=== PATIENT | female | born 1965 | race Caucasian/White ===

== ENCOUNTER 2025-04-06 09:20 | Observation (INO) ==
[2025-04-06] MEDS: SOLU-Medrol 125 MG VIAL IVP ONE (09:57)
[2025-04-06] MEDS: DUONEB 0.5 MG/3 MG (3 mL) NEB ONE ×2 (09:57→16:35)
[2025-04-06 10:11] LABS: BASOPHILS % (AUTO) 0.8 % (0.2-1.0); EOSINOPHILS % (AUTO) 0.3 % (0.9-2.9); HEMATOCRIT 47.9 % (36.0-47.0); HEMOGLOBIN 16.4 g/dL (12.0-16.0); LYMPHOCYTES # (AUTO) 1.3 X10^3/uL (1.3-2.9); LYMPHOCYTES % (AUTO) 23.3 % (21.0-51.0); MEAN CORPUSCULAR HEMOGLOBIN 31.2 pg (27.0-34.0); MEAN CORPUSCULAR HGB CONC 34.1 g/dL (33.0-35.0); MEAN CORPUSCULAR VOLUME 91.4 fL (80.0-100.0); MEAN PLATELET VOLUME 9.1 fL (7.4-11.0); MONOCYTES # (AUTO) 0.7 x10^3/uL (0.3-0.8); MONOCYTES % (AUTO) 12.6 % (0.0-13.0); NEUTROPHILS # (AUTO) 3.6 x10^3/uL (2.2-4.8); PLATELET COUNT 181 X10^3/uL (150.0-450.0); RED BLOOD COUNT 5.25 X10^6/uL (3.5-5.4); RED CELL DISTRIBUTION WIDTH 13.4 % (11.6-16.5); WHITE BLOOD COUNT 5.7 X10^3/uL (3.6-10.0)
[2025-04-06 10:19] LABS: ALANINE AMINOTRANSFERASE 24 Units/L (12-78); ALBUMIN 4.1 g/dL (3.4-5.0); ALKALINE PHOSPHATASE 87 Units/L (46-116); ASPARTATE AMINO TRANSFERASE 22 Units/L (15-37); BLOOD UREA NITROGEN 8 mg/dL (7-18); CALCIUM 8.6 mg/dL (8.5-10.1); CARBON DIOXIDE 26.3 mmol/L (21-32); CHLORIDE 102 mmol/L (98-107); CREATININE 0.67 mg/dL (0.55-1.02); GLUCOSE 86 mg/dL (65-99); POTASSIUM 3.4 mmol/L (3.5-5.1); SODIUM 139 mmol/L (136-145); TOTAL PROTEIN 9.6 g/dL (6.4-8.2); eGFR NON BLACK RACES > 60 (>60)
--- NOTE | 2025-04-06 10:20 | DR.SOBA ---
HPI Time Seen Time Seen by Provider: 04/06/25 10:17 Primary Care Physician Primary Care Physician: Neena Daniel [facility] Complaints Chief Complaint Doctors Comments: Patient stated that she has been sick since Wednesday of having shortness of breath she did give her some some albuterol treatments nebulizers twice a day and she did the HFA also. She did not improve so she stopped her primary care provider at the [facility] today and I am and they did a COVID test since she had been exposed to COVID and she stated that the test was negative there. She stated that employees where she worked had COVID and the flu. Chief Complaint:: Patient presented to Neena Daniel [employer] today due to being sick since Wednesday. She states that she has been around sick people at work, and believes that she has caught something there. She states that she started having shortness of breath, cough, and chills Wednesday night. She admits to having albuteral at home already, and started using it during the periods that she felt short of breath. She states that last night the shortness of breath was worse for a short period, so she presented to Neena this morning for further evaluation. Nenea asked her to present to the ER to rule out more serious conditions. COVID-19 Coronavirus risk:travel/contact w/high risk person: Yes Has patient experienced Coronavirus symptoms: Yes Coronavirus symptoms experienced: Coughing and Shortness of Breath Source History Provided: Patient Mode of Arrival Mode of Arrival: Wheelchair Timing Onset of Chief Complaint: 04/03/25 PMH PMH Past Medical History: Yes Past Medical History: GERD Past Surgical History: No Family History History of Family Medical Conditions: Yes Family Medical History: Diabetes Mellitus, Coronary Artery Disease, Sudden Cardiac and Hypertension Social History Does patient currently use any type of tobacco product: No Have you used tobacco products in the last 12 months: No Type of Tobacco Use: None Does any household member use tobacco: No Alcohol Use: None Do you use any recreational Drugs:: No Lives With: Family Lives Where: Home Travel Risk Coronavirus risk:travel/contact w/high risk person: Yes Has patient experienced Coronavirus symptoms: Yes Coronavirus symptoms experienced: Coughing and Shortness of Breath Infectious screening In the last 2 months have you had wt loss of >10#?: NO Have you had fever, night sweats or hemotysis?: No Have you traveled outside the country in the last 6 months?: No Isolation: Droplet ROS Review of Systems Constitutional: Other (Anxious with shortness of breath) Eyes: No Symptoms Reported ENTM: No Symptoms Reported Respiratoy: Non-Productive Cough and Short of Breath Cardiovascular: No Symptoms Reported Gastrointestinal/Abdominal: No Symptoms Reported Genitourinary: No Symptoms Reported Neurological: No Symptoms Reported Musculoskeletal: No Symptoms Reported Integumentary: No Symptoms Reported Hematologic/Lymphatic: No Symptoms Reported Endocrine: No Symptoms Reported Psychiatric: Anxiety PE Vital Signs Vitals: Vital Signs Temperature 98.1 F Pulse Rate 93 Pulse Rate 98 Pulse Rate 98 Pulse Rate 102 Pulse Rate 97 Pulse Rate 96 Pulse Rate 97 Pulse Rate 98 Pulse Rate 96 Pulse Rate 98 Pulse Rate 97 Pulse Rate 109 Pulse Rate 99 Pulse Rate 101 Pulse Rate 90 Pulse Rate 97 Pulse Rate 97 Pulse Rate 99 Respiratory Rate 20 Respiratory Rate 24 Respiratory Rate 29 Respiratory Rate 30 Respiratory Rate 20 Respiratory Rate 23 Respiratory Rate 17 Respiratory Rate 26 Respiratory Rate 24 Respiratory Rate 20 Respiratory Rate 14 Respiratory Rate 19 Respiratory Rate 21 Respiratory Rate 22 Respiratory Rate 17 Respiratory Rate 16 Respiratory Rate 25 Respiratory Rate 18 Blood Pressure 119/80 Blood Pressure 119/79 Blood Pressure 136/90 Blood Pressure 117/75 O2 Sat by Pulse Oximetry 94 O2 Sat by Pulse Oximetry 94 O2 Sat by Pulse Oximetry 96 O2 Sat by Pulse Oximetry 96 O2 Sat by Pulse Oximetry 94 O2 Sat by Pulse Oximetry 94 O2 Sat by Pulse Oximetry 90 O2 Sat by Pulse Oximetry 90 O2 Sat by Pulse Oximetry 92 O2 Sat by Pulse Oximetry 90 O2 Sat by Pulse Oximetry 97 O2 Sat by Pulse Oximetry 92 O2 Sat by Pulse Oximetry 95 O2 Sat by Pulse Oximetry 94 O2 Sat by Pulse Oximetry 91 O2 Sat by Pulse Oximetry 90 O2 Sat by Pulse Oximetry 91 O2 Sat by Pulse Oximetry 100 General Limitations: No Limitations General Appearance: Anxious Head Head Exam: Normal Inspection, Atraumatic and Normocephalic Eyes Eye exam: Normal Appearance, PERRL and EOMI ENT ENT Exam: Normal Exam, Normal Oropharynx and Normal External Ear Exam Neck Neck Exam: Normal Inspection, Full ROM and Trachea Midline Chest Chest Inspection: Normal Inspection Respiratory Respiratory Exam: Prolonged Expiratory Phase Respiratory Exam: Bilateral: Rhonchi Abdominal Exam Abdominal Exam: Normal Inspection and Normal Bowel Sounds Extremities Extremities Exam: Normal Inspection and Full ROM Back Back Exam: Normal Inspection and Full ROM Neurologic Neurological Exam: Alert, Oriented X3 and CN II-XII Intact Psychiatric Psychiatric Exam: Anxious Skin Skin Exam: Warm, Dry and Intact MDM Differential Diagnosis Differential Diagnosis: Anxiety, Pneumonia and Other (urti,viral urti) COURSE Treatment Treatment: Patient was toxic during the early terms of this hospital evaluation. She was initially given ABG and oxygen concentration was 54 pCO2 was 30 O2 sat was 91% on his blood gas. We did a chest x-ray did show low lung volumes with perihilar opacities, we did a CT a of the chest that showed an upper lobe and bilateral lower lobe pneumonias with patchy infiltrates. She also has some pulmonary lymphadenopathy that they suggest to be further evaluated when she clears the pneumonia. The patient had a slightly low potassium at 3.4 the rest of the metabolic panel was normal and on the CBC her white blood cell count was only 5.7. We did do a D-dimer that was 0.27 and the COVID respiratory panel was negative. Since the patient was hypoxic we did contact the physician Dr. Magana for this patient and he stated the patient could be admitted we had already given the patient Zithromax 500 mg IV and had done blood cultures here but he wanted her to be started on levofloxacin 750 mg IV daily tomorrow he wanted to do Solu-Medrol 40 mg IV daily continue oxygen to maintain O2 sat greater than 92 and to the DuoNebs every 6 hours and he also so wanted an AIT swab done. The patient was told of the intent to admit and initially she said that she would like if we could send her home and get these IV antibiotics. She was told that this was virtually impossible but she did need to get treatment so she did states she would except admission to observation for treatment of her pneumonia and to further evaluate at some near date for the pulmonary lymphadenopathy. ROR Labs Reviewed Laboratory Results Reviewed?: Yes 04/06/25 09:56 04/06/25 09:56 Laboratory: WBC 5.7 X10^3/uL (3.6-10.0) 04/06/25 09:56 RBC 5.25 X10^6/uL (3.5-5.4) 04/06/25 09:56 Hgb 16.4 g/dL (12.0-16.0) H 04/06/25 09:56 Hct 47.9 % (36.0-47.0) H 04/06/25 09:56 MCV 91.4 fL (80.0-100.0) 04/06/25 09:56 MCH 31.2 pg (27.0-34.0) 04/06/25 09:56 MCHC 34.1 g/dL (33.0-35.0) 04/06/25 09:56 RDW 13.4 % (11.6-16.5) 04/06/25 09:56 Plt Count 181 X10^3/uL (150.0-450.0) 04/06/25 09:56 MPV 9.1 fL (7.4-11.0) 04/06/25 09:56 Neut % (Auto) 63.0 % (42.0-75.0) 04/06/25 09:56 Lymph % (Auto) 23.3 % (21.0-51.0) 04/06/25 09:56 Shelby % (Auto) 12.6 % (0.0-13.0) 04/06/25 09:56 Eos % (Auto) 0.3 % (0.9-2.9) L 04/06/25 09:56 Baso % (Auto) 0.8 % (0.2-1.0) 04/06/25 09:56 Neut # (Auto) 3.6 x10^3/uL (2.2-4.8) 04/06/25 09:56 Lymph # (Auto) 1.3 X10^3/uL (1.3-2.9) 04/06/25 09:56 Shelby # (Auto) 0.7 x10^3/uL (0.3-0.8) 04/06/25 09:56 Eos # (Auto) 0.0 x10^3/uL (0.0-0.2) 04/06/25 09:56 Baso # (Auto) 0.0 X10^3/uL (0.0-0.1) 04/06/25 09:56 Absolute Nucleated RBC 0.1 /100WBC 04/06/25 09:56 D-Dimer < 0.27 ug/ml (0.0-0.57) 04/06/25 09:56 Sample Site Rb 04/06/25 10:23 ABG pH 7.510 (7.35-7.45) H 04/06/25 10:23 ABG pCO2 30.0 mmHg (35.0-45.0) L 04/06/25 10:23 ABG pO2 54.0 mmHg (80.0-100.0) L 04/06/25 10:23 ABG HCO3 23.9 mmol/L (22-26) 04/06/25 10:23 ABG O2 Saturation 91.0 % (90-100) 04/06/25 10:23 ABG Base Excess 1.6 mmol/L (-2.0-2.0) 04/06/25 10:23 Eliud Test N/a 04/06/25 10:23 A-a Gradient 58.0 mmHg 04/06/25 10:23 FiO2 21.0 04/06/25 10:23 Blood Gas Comments Pt yuliana well elj 04/06/25 10:23 Sodium 139 mmol/L (136-145) 04/06/25 09:56 Corrected Sodium TNP 04/06/25 09:56 Potassium 3.4 mmol/L (3.5-5.1) L 04/06/25 09:56 Chloride 102 mmol/L (98-107) 04/06/25 09:56 Carbon Dioxide 26.3 mmol/L (21-32) 04/06/25 09:56 BUN 8 mg/dL (7-18) 04/06/25 09:56 Creatinine 0.67 mg/dL (0.55-1.02) 04/06/25 09:56 Est GFR (MDRD) Af Amer > 60 (>60) 04/06/25 09:56 Est GFR (MDRD) Non-Af > 60 (>60) 04/06/25 09:56 Glucose 86 mg/dL (65-99) 04/06/25 09:56 Calcium 8.6 mg/dL (8.5-10.1) 04/06/25 09:56 Corrected Calcium TNP 04/06/25 09:56 Total Bilirubin 0.60 mg/dL (0.2-1.0) 04/06/25 09:56 AST 22 Units/L (15-37) 04/06/25 09:56 ALT 24 Units/L (12-78) 04/06/25 09:56 Alkaline Phosphatase 87 Units/L (46-116) 04/06/25 09:56 Total Protein 9.6 g/dL (6.4-8.2) H 04/06/25 09:56 Albumin 4.1 g/dL (3.4-5.0) 04/06/25 09:56 Globulin 5.5 g/dL (2.5-4.5) H 04/06/25 09:56 Albumin/Globulin Ratio 0.7 Ratio (1.1-2.1) L 04/06/25 09:56 SARS-CoV-2 (PCR) Negative (NEGATIVE) 04/06/25 10:03 Influenza Type A (PCR) Negative (NEGATIVE) 04/06/25 10:03 Influenza Type B (PCR) Negative (NEGATIVE) 04/06/25 10:03 RSV (PCR) Negative (NEGATIVE) 04/06/25 10:03 Opioid Opioid Risk Tool Age (Shailesh box if 16-45): No History of Preadolescent Sexual Abuse: No Total: 0 Total Score Risk Category: Low Risk Copyright: Rafa ARCHER predicting aberrant behaviors Discharge Plan Diagnosis Discharge Problem: Multifocal pneumonia, Hypoxia, Lymphadenopathy, hilar Discharge Plan Patient Disposition: ADMITTED INPATIENT Condition: Stable Prescriptions: No Action estrogens-methyltestosterone 1.25-2.5 mg tablet 1 tab PO QDAY progesterone micronized 100 mg capsule 100 mg PO QDAY Health Concerns: Post Hospitalization: new medications and changes needed to prevent readmission or further decline. Pt educated and given instructions on all concerns. Plan of Treatment: Continue with present treatment and follow up plan. Pt is to keep follow up appointment as instructed and take medications as ordered. Orders to Discharge Patient Discharge Orders: Transfer (Routine); Ordered 04/06/25 Ordered By: Rodolfo Bautista Follow ups/Referrals Follow ups/Referrals: Matthew Magana MD [Primary Care Provider, MEDICAL] - 3 days Instructions Stand Alone Forms: Find Help Web Site, Post Hospital Follow Up Care Print Language: POLISH
[2025-04-06 10:32] LABS: ABG BASE EXCESS 1.6 mmol/L (-2.0-2.0); ABG HCO3 23.9 mmol/L (22-26)
--- NOTE | 2025-04-06 12:33 | CT ---
EXAM: CTA chest with contrast for pulmonary embolus HISTORY: Shortness of breath TECHNIQUE: Axial postcontrast images with coronal and sagittal reformats. Three- dimensional maximum intensity projection images were obtained and evaluated. Dose reduction techniques were used with MA/kv adjusted for body size. COMPARISON: None FINDINGS: There is no evidence for acute pulmonary thromboembolic disease. Examination of the mediastinum demonstrated no evidence for mediastinal mass, enlarged mediastinal or enlarged hilar adenopathy or significant aortic abnormality. There are some prominent but nonenlarged retrocaval pretracheal and AP window lymph nodes. There is an enlarged right paratracheal lymph node at the level just above the ian and measuring 2.5 x 2.1 by 1.6 cm. Prominent but not grossly enlarged right hilar adenopathy identified. Prominent but not grossly enlarged sub carinal nodes identified. Malignant lymphadenopathy should be excluded with PET-CT. There is a small hiatal hernia present. There is eventration of the right hemidiaphragm. No pleural effusions are identified. No chest wall or axillary abnormalities identified. Those portions of the upper abdominal organs visualized appeared within normal limits with the exception of possible partially visualized hepatomegaly. examination of the lung cottrell d emonstrate a 4.8 by 5.8 mm left apical pulmonary nodule requiring CT follow-up in 4-6 months. There are some subtle patchy peripheral upper lobe infiltrates and consolidating alveolar infiltrates in the superior portion of the left lower lobe. Findings are consistent with multifocal pneumonia which should be followed until complete resolution. There is diffuse peribronchial thickening suggestive of bronchitis which could be acute, chronic, or both. IMPRESSION: No evidence for acute pulmonary thromboembolic disease Abnormal mediastinal lymphadenopathy with an enlarged right paratracheal lymph node just above the level of the ian and with multiple prominent but not grossly enlarged retrocaval pretracheal, AP window, subcarinal, and right hilar lymphadenopathy. Although this could be reactive to the patient's pneumonia follow-up examination is recommended when the pneumonia has cleared and if the adenopathy has not resolved then PET-CT is recommended to exclude malignant adenopathy Patchy bilateral upper lobe infiltrates and a larger superior left lower lobe infiltrate consistent with multifocal pneumonia which should be followed until complete resolution. Follow-up would best be with CT. 4.8 x 5.8 mm left apical pulmonary nodule requiring CT follow-up in 4-6 months Eventration of the right hemidiaphragm Small hiatal hernia Partially visualized nonspecific hepatomegaly THIS IS AN ELECTRONICALLY VERIFIED FINAL REPORT 04/06/2025 12:30 PM - Electronically signed by Ovi Berg MD
--- NOTE | 2025-04-06 13:04 | RAD ---
EXAM: CHEST, 1 VIEW HISTORY: SOB, COUGH; COMPARISON: None. TECHNIQUE: AP portable FINDINGS: Prominent cardiac silhouette, accentuated by AP technique. Low lung volumes. Hazy perihilar opacities. No large pleural effusion or visible pneumothorax. IMPRESSION: Low lung volumes with hazy perihilar opacities, suspicious for pulmonary edema. THIS IS AN ELECTRONICALLY VERIFIED FINAL REPORT 04/06/2025 1:01 PM - Electronically signed by Emir Moeller MD
[2025-04-06] MEDS: ZITHROMAX INJ 500 MG VIAL 500 MG in NS 250 ML IV 250 ML IV ONE (13:34)
[2025-04-06] MEDS: TYLENOL 500 MG TAB EXTRA STRENGTH PO ONE ×2 (14:14→14:34)
[2025-04-06] MEDS: OMNIPAQUE 350 mg/mL 100 mL BTL 100 ML ONE (14:34)
[2025-04-06 15:18] VITALS: BMI 24.6
[2025-04-06] MEDS: DUONEB 0.5 MG/3 MG (3 mL) NEB SCH (15:52)
[2025-04-06] MEDS: CONSULT PHARMACY - POTASSIUM & MAGNESIUM XX SCH (17:13)
[2025-04-06] MEDS: K-DUR TAB 20 MEQ PO ONE (17:23)
[2025-04-06] MEDS: PULMICORT NEB TX 0.5 MG NEB SCH (21:06)
[2025-04-07 06:34] LABS: BASOPHILS % (AUTO) 0.3 % (0.2-1.0); HEMATOCRIT 42.2 % (36.0-47.0); HEMOGLOBIN 14.5 g/dL (12.0-16.0); LYMPHOCYTES # (AUTO) 1.2 X10^3/uL (1.3-2.9); LYMPHOCYTES % (AUTO) 28.1 % (21.0-51.0); MEAN CORPUSCULAR HEMOGLOBIN 31.2 pg (27.0-34.0); MEAN CORPUSCULAR HGB CONC 34.3 g/dL (33.0-35.0); MEAN PLATELET VOLUME 9.3 fL (7.4-11.0); MONOCYTES # (AUTO) 0.5 x10^3/uL (0.3-0.8); MONOCYTES % (AUTO) 12.4 % (0.0-13.0); NEUTROPHILS # (AUTO) 2.5 x10^3/uL (2.2-4.8); NEUTROPHILS % (AUTO) 59.2 % (42.0-75.0); PLATELET COUNT 170 X10^3/uL (150.0-450.0); RED BLOOD COUNT 4.64 X10^6/uL (3.5-5.4); RED CELL DISTRIBUTION WIDTH 13.3 % (11.6-16.5); WHITE BLOOD COUNT 4.2 X10^3/uL (3.6-10.0)
[2025-04-07 06:46] LABS: ALANINE AMINOTRANSFERASE 22 Units/L (12-78); ALBUMIN 3.4 g/dL (3.4-5.0); ALKALINE PHOSPHATASE 76 Units/L (46-116); ASPARTATE AMINO TRANSFERASE 15 Units/L (15-37); BLOOD UREA NITROGEN 13 mg/dL (7-18); CALCIUM 8.7 mg/dL (8.5-10.1); CARBON DIOXIDE 27.1 mmol/L (21-32); CHLORIDE 107 mmol/L (98-107); COR NA(FOR HYPERGLY) 143 mmol/L (136-145); GLUCOSE 112 mg/dL (65-99); POTASSIUM 3.8 mmol/L (3.5-5.1); SODIUM 143 mmol/L (136-145); eGFR NON BLACK RACES > 60 (>60)
[2025-04-07] MEDS ORDERED: CONSULT PHARMACY - POTASSIUM & MAGNESIUM XX SCH (08:00)
[2025-04-07] MEDS: K-DUR TAB 20 MEQ PO SCH (08:12)
[2025-04-07] MEDS: LEVAQUIN PREMIX IV 750 MG 750 MG/150 ML BAG IV SCH (08:12)
[2025-04-07] MEDS: NS 250 ML IV 25 ML IV PRN (08:12)
[2025-04-07] MEDS: SOLU-Medrol 40 MG VIAL IVP SCH (08:12)
[2025-04-07] MEDS: PATIENT'S HOME MEDICATION PO SCH (08:13)
[2025-04-07 08:31] VITALS: RESP 16
[2025-04-07] MEDS: PREVACID PO SCH (09:06)
[2025-04-07 16:03] VITALS: BP 126/70; PULSE 96; TEMP 97.6; O2SAT 93
== END 2025-04-07 18:40 | disposition home or self-care (01) ==
LOC: ER 09:20 → MED/SURG 09:20
PROVIDERS: ADMIT Family Medicine; ATTEND Family Medicine
DX: Z29.89 Encounter for other specified prophylactic measures; R91.1 Solitary pulmonary nodule; R73.9 Hyperglycemia, unspecified; E87.6 Hypokalemia; K21.9 Gastro-esophageal reflux disease without esophagitis; Z16.29 Resistance to other single specified antibiotic; R06.02 Shortness of breath; R59.1 Generalized enlarged lymph nodes; F41.9 Anxiety disorder, unspecified; R09.02 Hypoxemia; J13 Pneumonia due to Streptococcus pneumoniae; R71.8 Other abnormality of red blood cells; Z03.818 Encounter for observation for suspected exposure to other biological agents ruled out; K44.9 Diaphragmatic hernia without obstruction or gangrene